=== PATIENT | male | born 1940 | race Caucasian/White ===

== ENCOUNTER → 2017-11-29 | Outpatient (CLI) | payer MEDICARE, OTHER ==
[~2017-11-29] MED LIST: CIPROFLOXACIN500 MG PO; CLONAZEPAM0.5 MG PO; Carafate1 GM PO; FERROUSAL325 MG PO; GLIPIZIDE5 MG PO; GLYBURIDE5 MG PO; IRON65 MG PO; JANUVIA100 MG PO; K-DUR 1010 MEQ PO; LASIX20 MG PO; MEDROL DOSEPAK4 MG PO; METFORMIN HCL1000 MG PO; METFORMIN HCL500 MG PO; NEXIUM40 MG PO; PRILOSEC40 MG PO; PROVENTIL0.09 MG/A1 INH; ROBITUSSIN AC 110 ML PO; TEMAZEPAM30 MG PO; XANAX0.5 MG PO; ZESTRIL2.5 MG PO; ZOCOR40 MG PO; ZOLOFT50 MG PO
[2017-11-29 10:16] LABS: BUN 16 mg/dl (7-24); CREATININE 1.27 mg/dL (0.70-1.30)
== END | disposition home or self-care (01) ==
LOC: LAB 09:17
PROVIDERS: Internal Medicine
DX: Z01.818 Encounter for other preprocedural examination (principal); M75.101 Unspecified rotator cuff tear or rupture of right shoulder, not specified as traumatic

== ENCOUNTER → 2017-12-03 | Outpatient (CLI) | payer MEDICARE, OTHER | END | disposition home or self-care (01) | LOC: CT 00:18 | DX: K57.30 Diverticulosis of large intestine without perforation or abscess without bleeding (principal); D35.01 Benign neoplasm of right adrenal gland; K44.9 Diaphragmatic hernia without obstruction or gangrene; E27.9 Disorder of adrenal gland, unspecified ==